=== PATIENT | male | born 1935 | race Caucasian/White ===

== ENCOUNTER 2017-12-20 09:25 | Outpatient (CLI) | payer MEDICARE, OTHER ==
[2017-12-20 12:53] LABS: BASOPHILS # (AUTO) 0.1 10^3/uL (0.0-0.1); EOSINOPHILS # (AUTO) 0.2 10^3/uL (0.0-0.7); EOSINOPHILS % (AUTO) 3.8 %; LYMPHOCYTES % (AUTO) 34.4 %; MEAN CORPUSCULAR HEMOGLOBIN 32.3 pg (27.0-31.0); MEAN CORPUSCULAR HGB CONC 35.2 g/dL (32.0-36.0); MEAN CORPUSCULAR VOLUME 91.7 fL (80.0-94.0); MEAN PLATELET VOLUME 9.1 fL (7.4-11.4); MONOCYTES # (AUTO) 0.6 10^3/uL (0.0-1.0); MONOCYTES % (AUTO) 9.7 %; NEUTROPHILS % (AUTO) 51.1 %; PLT - PLATELET COUNT 208 10^3/uL (130-450); RED BLOOD COUNT 4.34 10^6/uL (4.70-6.10); RED CELL DISTRIBUTION WIDTH 13.8 % (12.0-15.0); WHITE BLOOD COUNT 5.9 x10^3/uL (4.8-10.8)
[2017-12-20 13:11] LABS: ALBUMIN 3.9 g/dL (3.2-5.5); ALBUMIN/GLOBULIN RATIO 1.2 (1.0-2.2); ALKALINE PHOSPHATASE 52 IU/L (42-121); ALT ALANINE AMINOTRANSFERASE 18 IU/L (10-60); AST ASPARTATE AMINOTRANSFERASE 27 IU/L (10-42); BILIRUBIN,TOTAL 1.3 mg/dL (0.2-1.0); BUN - BLOOD UREA NITROGEN 21 mg/dL (6-20); CARBON DIOXIDE - CO2 28 mmol/L (21-32); CHLORIDE 101 mmol/L (101-111); CHOLESTEROL 139 mg/dL; CREATININE 1.2 mg/dL (0.6-1.2); GFR - MDRD 58 (>89); GLUCOSE 97 mg/dL (70-100); HDL CHOLESTEROL 35 mg/dL; LDL CHOLESTEROL,CALCULATED 87 mg/dL; LDL/HDL RATIO 2.5 (<3.6); SODIUM 136 mmol/L (135-145); TOTAL PROTEIN 7.2 g/dL (6.7-8.2); VLDL CHOLESTEROL 17 mg/dL
== END 2017-12-20 09:26 | disposition home or self-care (01) ==
LOC: LAB.WCP 09:25
PROVIDERS: ATTEND Family Medicine
DX: I10 Essential (primary) hypertension (principal); E78.5 Hyperlipidemia, unspecified
CPT/HCPCS: 36415; 80053; 80061; 83721; 84443; 85025

== ENCOUNTER 2018-04-03 05:57 | Outpatient (CLI) | payer MEDICARE, OTHER ==
[2018-04-03] MEDS ORDERED: IOPAMIDOL-300 100 ML VIAL ONE (06:58)
[2018-04-03] MEDS ORDERED: IOPAMIDOL-300 100 ML VIAL IVP ONE (07:37)
--- NOTE | 2018-04-03 11:29 | CT Report ---
Reason: RENAL MASS Procedure Date: 04/03/2018 Accession Number: [id number] / [id number] Procedure: CT - Abdomen W/WO CPT Code: FULL RESULT: EXAM: CT ABDOMEN WITHOUT AND WITH CONTRAST EXAM DATE: 04/03/2018 07:32 AM. HISTORY: RENAL MASS. COMPARISON: ABDOMEN/PELVIS W/ 02/22/2016 12:30 PM. TECHNIQUE: Routine helical CT imaging was performed through the abdomen before and after administration of IV contrast: 100 mL of Isovue-300. Enteric contrast: No. Reconstruction: Coronal and sagittal. In accordance with CT protocol optimization, one or more of the following dose reduction techniques were utilized for this exam: automated exposure control, adjustment of mA and/or KV based on patient size, or use of iterative reconstructive technique. FINDINGS: Lung Bases: Unremarkable. Liver: Liver again demonstrates hypodensities too small to characterize. Gallbladder/Bile Ducts: Unremarkable. Spleen: Granuloma. Pancreas: Stable 5 mm hypodensity in the body of the pancreas most likely represents a side branch IPMN. Adrenal Glands: Normal. Kidneys: The previously noted exophytic 1.5 cm left midpole renal mass demonstrates enhancement features consistent with renal cell carcinoma. Bilateral cysts and hypodensities too small to characterize are also noted. Peritoneal Cavity/Bowel: Normal. No free fluid, free air or adenopathy. No masses or acute inflammatory process. The appendix is well visualized and normal. Vasculature: No aneurysms or other significant abnormality. Bones: No aggressive osseous lesion is identified. Note is made of 5 mm of grade 1 anterolisthesis of L4 on L5. Other: None. IMPRESSION: The left 1.5 cm renal lesion is characterized as suspicious for renal cell carcinoma. 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 RADIA The above findings of left renal tumor were discussed with Yue Magaña by Dr. Filemon Barrios at 11:26 hrs on 04/03/18.
== END 2018-04-03 05:58 | disposition home or self-care (01) ==
LOC: LAB 05:57
PROVIDERS: ATTEND Urology
DX: N28.89 Other specified disorders of kidney and ureter (principal); D13.6 Benign neoplasm of pancreas
CPT/HCPCS: 36415; 74170; 82565; 84520; Q9967

== ENCOUNTER 2018-09-24 07:46 | Outpatient (CLI) | payer MEDICARE, OTHER ==
--- NOTE | 2018-09-24 17:06 | Ultrasound Report ---
Reason: OTHER SPECIFIED DISORDERS OF KIDNEY AND URETER Procedure Date: 09/24/2018 Accession Number: [id number] / [id number] Procedure: US - Retroperitoneal CPT Code: FULL RESULT: EXAM: RENAL ULTRASOUND EXAM DATE: 09/24/2018 08:39 AM. CLINICAL HISTORY: Left renal mass, bilateral renal cysts, bladder cancer, for follow-up. COMPARISON: CT abdomen 04/03/2018, ultrasound retroperitoneal 02/27/[address] scan abdomen and pelvis 02/22/2016. TECHNIQUE: Real-time scanning was performed with static images obtained. FINDINGS: Right Kidney: 10.8 x 4.9 x 5 cm. 0.6 x 0.4 x 0.4 cm nonobstructing lower pole calculus. 0.8 x 0.7 x 0.8 cm upper pole simple cyst. Otherwise negative right kidney Left Kidney: 11 x 4.5 x 4.8 cm cm. Mid to lower pole 4 x 3.5 x 4 cm cyst again noted with adjacent solid mass precise measurements difficult to determine because the mass blends with the kidney along its deep margin. Approximate measurements are 1.4 x 1.4 x 3.9 cm . Upper pole cyst 1.3 x 1.1 x 1.2 cm. Bladder: Bilateral jets seen. The prevoid bladder volume was 319 cc. The postvoid bladder volume was 0 cc. Other: None. IMPRESSION: Solid-appearing left renal mass again appreciated adjacent to a large exophytic simple cyst. Precise mass measurements are difficult because the mass blends with the kidney along the deep margin. The exophytic component measures approximately 1.4 cm in diameter. RADIA
== END 2018-09-24 07:47 | disposition home or self-care (01) ==
LOC: DI 07:46
PROVIDERS: ATTEND Urology
DX: N28.89 Other specified disorders of kidney and ureter (principal); N28.1 Cyst of kidney, acquired
CPT/HCPCS: 76770

== ENCOUNTER 2019-02-16 08:00 | Outpatient (CLI) | payer MEDICARE, OTHER ==
[2019-02-16 13:29] LABS: ALBUMIN/GLOBULIN RATIO 1.3 (1.0-2.2); ALKALINE PHOSPHATASE 53 IU/L (42-121); ALT ALANINE AMINOTRANSFERASE 21 IU/L (10-60); AST ASPARTATE AMINOTRANSFERASE 23 IU/L (10-42); BILIRUBIN,TOTAL 1.1 mg/dL (0.2-1.0); BUN - BLOOD UREA NITROGEN 15 mg/dL (6-20); CARBON DIOXIDE - CO2 29 mmol/L (21-32); CHLORIDE 100 mmol/L (101-111); CHOL/HDL RATIO 3.1 (<5.0); CHOLESTEROL 129 mg/dL; CREATININE 1.1 mg/dL (0.6-1.2); GFR - MDRD 64 (>89); GLUCOSE 94 mg/dL (70-100); HDL CHOLESTEROL 41 mg/dL; LDL CHOLESTEROL,CALCULATED 70 mg/dL; LDL/HDL RATIO 1.7 (<3.6); SODIUM 138 mmol/L (135-145); TOTAL PROTEIN 7.2 g/dL (6.7-8.2); VLDL CHOLESTEROL 18 mg/dL
[2019-02-16 13:48] LABS: BASOPHILS # (AUTO) 0.1 10^3/uL (0.0-0.1); BASOPHILS % (AUTO) 0.8 %; EOSINOPHILS # (AUTO) 0.3 10^3/uL (0.0-0.7); EOSINOPHILS % (AUTO) 3.4 %; HGB - HEMOGLOBIN 14.3 g/dL (14.0-18.0); LYMPHOCYTES # (AUTO) 2.5 10^3/uL (1.5-3.5); LYMPHOCYTES % (AUTO) 33.1 %; MEAN CORPUSCULAR HEMOGLOBIN 32.1 pg (27.0-31.0); MEAN CORPUSCULAR HGB CONC 34.5 g/dL (32.0-36.0); MEAN CORPUSCULAR VOLUME 93.3 fL (80.0-94.0); MEAN PLATELET VOLUME 10.9 fL (7.4-11.4); MONOCYTES # (AUTO) 0.6 10^3/uL (0.0-1.0); MONOCYTES % (AUTO) 8.3 %; NEUTROPHILS # (AUTO) 4.1 10^3/uL (1.5-6.6); NEUTROPHILS % (AUTO) 54.1 %; PLT - PLATELET COUNT 215 10^3/uL (130-450); RED BLOOD COUNT 4.45 10^6/uL (4.70-6.10); RED CELL DISTRIBUTION WIDTH 13.2 % (12.0-15.0); WHITE BLOOD COUNT 7.6 x10^3/uL (4.8-10.8)
== END 2019-02-16 23:59 | disposition home or self-care (01) ==
LOC: LAB.WCP 08:00
PROVIDERS: ATTEND Family Medicine
DX: I10 Essential (primary) hypertension (principal); E78.5 Hyperlipidemia, unspecified
CPT/HCPCS: 36415; 80053; 80061; 83721; 84443; 85025

== ENCOUNTER 2019-11-02 11:39 | Outpatient (CLI) | payer MEDICARE, OTHER ==
--- NOTE | 2019-11-02 16:57 | Ultrasound Report ---
Reason: RENAL MASS Procedure Date: 11/02/2019 Accession Number: [id number] / [id number] Procedure: US - Retroperitoneal CPT Code: Final Report FULL RESULT: PROCEDURE: Retroperitoneal INDICATIONS: RENAL MASS TECHNIQUE: Real-time scanning was performed of the retroperitoneal organs, with image documentation. COMPARISON: Prior retroperitoneal ultrasound 09/24/[address] abdomen 04/03/2018. These studies have identified a solid left renal cortical mass lesion adjacent to a large simple cyst. FINDINGS: Sonographic evaluation again performed, targeted specifically towards determining whether there is interval enlargement of a solid suspected renal cell carcinoma at the left kidney. Kidneys: Kidneys are normal in size. Right kidney measures 11.1 cm long; left kidney measures 11.0 cm long. Right renal cortical thickness is 1.2 cm; left renal cortical thickness is 1.1 cm. The right kidney contains a 9 x 10 x 12 mm cyst, and a set of 2 calculi at the mid kidney on the right measuring 5 x 7 x 10 mm and at the lower third collecting system measuring 5 x 6 x 7 mm with mild pelvic prominence in the normal variant range. The left kidney again shows a dominant exophytic fluid-filled cyst measuring up to 4.4 x 3.9 x 4.6 cm and the solid mass immediately adjacent measures up to 4.0 by 1.3 x 1.7 cm and previously having measured 3.9 x 1.4 x 1.4 cm. There is little if any change. A second septated cyst measures 2.7 x 1.6 x 1.4 cm at the lower cortex of the left kidney. Pancreas: Visualized portions of the pancreas are sonographically normal. Aorta: Visualized aorta is normal in caliber at 3 cm or less. Iliac arteries: Proximal common iliac arteries are normal in caliber at 2.5 cm or less. IVC: Intrahepatic inferior vena cava is patent. Miscellaneous: No free abdominal fluid. IMPRESSION: The solid mass lesion exophytic from the cortex of the left kidney immediately adjacent to a dominant left lateral renal cortical cyst measures only very slightly larger than on the comparison study from 09/24/2018. 2 nonobstructive calculi are seen at the collecting system of the right kidney. Continued yearly sonographic follow-up of the solid mass is recommended unless directed otherwise by urology specialist staff. Reviewed by: Satinder Luong MD on 11/02/2019 4:56 PM PDT Approved by: Satinder Luong MD on 11/02/2019 4:56 PM PDT Station ID: [id number]
== END 2019-11-02 11:40 | disposition home or self-care (01) ==
LOC: DI 11:39
PROVIDERS: ATTEND Urology
DX: N28.89 Other specified disorders of kidney and ureter (principal); N28.1 Cyst of kidney, acquired; N20.0 Calculus of kidney
CPT/HCPCS: 76770

== ENCOUNTER 2020-04-07 08:03 | Outpatient (CLI) | payer MEDICARE, OTHER ==
[2020-04-07 08:36] LABS: CREATININE 1.2 mg/dL (0.6-1.2)
[2020-04-07] MEDS ORDERED: IOVERSOL 320 100 ML VIAL IVP ONE ×2 (09:05→17:12)
--- NOTE | 2020-04-07 09:58 | CT Report ---
PROCEDURE: ABDOMEN W/WO INDICATIONS: RENAL MASS CONTRAST: IV CONTRAST: Optiray 320 ml: 140 PO CONTRAST: *NO PO CONTRAST TECHNIQUE: Images were obtained prior to contrast and after contrast in the arterial and venous phase . For radiation dose reduction, the following was used: automated exposure control, adjustment of m A and/or kV according to patient size. COMPARISON: None. FINDINGS: Image quality: Excellent. ABDOMEN: Lung bases: Lung bases are clear. Heart size is normal. Solid organs: Liver: The liver has no mass or intrahepatic biliary ductal dilatation. Several subcentimeter hepatic hypodensities are too small to further characterize but are likely cysts and are unchanged compared to 04/03/2018. Biliary: The gallbladder has no stones. No wall thickening or pericholecystic fluid. Pancreas: No pancreatic mass or ductal dilatation. No peripancreatic inflammation. Spleen: The spleen has a normal size. Multiple punctate calcifications in the spleen are consistent w ith prior granulomatous disease. Adrenal glands: Normal size. No adrenal nodules. Kidneys: A dominant cyst of the left kidney measuring 4.0 x 4.5 x 4.7 cm is slightly larger compared to the prior CT on 04/03/2018 when it measured 3.7 x 3.4 x 4.0 cm. Adjacent to this cyst a solid perip herally enhancing mass measuring 1.4 x 1.7 x 1.3 cm is unchanged, having previously measured 1.3 x 1. 6 x 1.3 cm. A 1.4 cm cyst in the midpole posteriorly is simple and appears unchanged. Bowel: The distal esophagus, stomach, small bowel are normal. The visualized large bowel has a normal appearance with a few scattered diverticula. Free air/free fluid: No free air or free fluid. Abdominal wall: No abdominal wall mass or hernia. Retroperitoneum: No retroperitoneal adenopathy or mass. Lymph nodes: No abdominal or retroperitoneal adenopathy. Bones: The lumbar spine has multilevel degenerative changes and Schmorl's nodes at multiple levels. T he L4-5 disc space is narrowed with endplate degenerative changes. The L1 and L3 vertebral bodies hav e sclerotic lesions anteriorly which are unchanged compared to a remote CT on 04/03/2018. IMPRESSION: 1. Solid peripherally enhancing mass in the left kidney is stable compared to the prior CT on 04/03/20 18. 2. A dominant cyst in the left kidney is slightly larger now measuring 4.0 x 4.5 x 4.7 cm. 3. A second cyst in the left kidney appears simple and is unchanged. 4. Unchanged sclerotic foci in the lumbar spine at L1 and L3. Reviewed by: Keith Hoffman on 04/07/2020 9:57 AM PST Approved by: Keith Hoffman on 04/07/2020 9:57 AM [facility] Station ID: [id number]
== END 2020-04-07 08:04 | disposition home or self-care (01) ==
LOC: LAB 08:03
PROVIDERS: ATTEND Urology
DX: N28.89 Other specified disorders of kidney and ureter (principal); N28.1 Cyst of kidney, acquired
CPT/HCPCS: 36415; 74170; 82565; 84520; Q9967

== ENCOUNTER 2020-08-02 07:20 | Outpatient (CLI) | payer MEDICARE, OTHER ==
[2020-08-02 12:07] LABS: BASOPHILS # (AUTO) 0.1 10^3/uL (0.0-0.1); BASOPHILS % (AUTO) 0.9 %; EOSINOPHILS # (AUTO) 0.2 10^3/uL (0.0-0.7); EOSINOPHILS % (AUTO) 2.8 %; HCT - HEMATOCRIT 41.2 % (42.0-52.0); LYMPHOCYTES # (AUTO) 2.1 10^3/uL (1.5-3.5); LYMPHOCYTES % (AUTO) 36.8 %; MEAN CORPUSCULAR HEMOGLOBIN 31.5 pg (27.0-31.0); MEAN CORPUSCULAR VOLUME 92.8 fL (80.0-94.0); MEAN PLATELET VOLUME 10.7 fL (7.4-11.4); MONOCYTES # (AUTO) 0.5 10^3/uL (0.0-1.0); NEUTROPHILS # (AUTO) 2.9 10^3/uL (1.5-6.6); NEUTROPHILS % (AUTO) 50.3 %; PLT - PLATELET COUNT 235 10^3/uL (130-450); RED BLOOD COUNT 4.44 10^6/uL (4.70-6.10); RED CELL DISTRIBUTION WIDTH 13.7 % (12.0-15.0); WHITE BLOOD COUNT 5.8 x10^3/uL (4.8-10.8)
[2020-08-02 12:25] LABS: ALBUMIN 4.2 g/dL (3.2-5.5); ALBUMIN/GLOBULIN RATIO 1.4 (1.0-2.2); ALKALINE PHOSPHATASE 53 IU/L (42-121); ALT ALANINE AMINOTRANSFERASE 16 IU/L (10-60); AST ASPARTATE AMINOTRANSFERASE 21 IU/L (10-42); BILIRUBIN,TOTAL 1.3 mg/dL (0.2-1.0); BUN - BLOOD UREA NITROGEN 14 mg/dL (6-20); CALCIUM 9.1 mg/dL (8.5-10.3); CARBON DIOXIDE - CO2 25 mmol/L (21-32); CHLORIDE 102 mmol/L (101-111); CHOLESTEROL 136 mg/dL; CREATININE 1.1 mg/dL (0.6-1.2); GFR - MDRD 64 (>89); GLUCOSE 96 mg/dL (70-100); HDL CHOLESTEROL 46 mg/dL; LDL CHOLESTEROL,CALCULATED 72 mg/dL; LDL/HDL RATIO 1.6 (<3.6); POTASSIUM 3.8 mmol/L (3.5-5.0); SODIUM 136 mmol/L (135-145); TOTAL PROTEIN 7.2 g/dL (6.7-8.2); TRIGLYCERIDES 91 mg/dL; VLDL CHOLESTEROL 18 mg/dL
[2020-08-02 12:33] LABS: THYROID STIMULATING HORMONE 2.14 uIU/mL (0.34-5.60)
[2020-08-02 12:37] LABS: BILIRUBIN,URINE NEGATIVE (NEGATIVE); GLUCOSE, URINE (UA) NEGATIVE (NEGATIVE); KETONES,URINE (UA) NEGATIVE (NEGATIVE); LEUKOCYTE ESTERASE, URINE NEGATIVE (NEGATIVE); NITRITE,URINE NEGATIVE (NEGATIVE); OCCULT BLOOD,URINE NEGATIVE (NEGATIVE); PROTEIN,URINE NEGATIVE (NEGATIVE); UROBILINOGEN,URINE 0.2 (NORMAL) E.U./dL (NORMAL)
[2020-08-02 12:48] LABS: CLARITY,URINE CLEAR (CLEAR); RBC,URINE 0-5 /HPF (0-5); SQUAMOUS EPITHELIAL CELL,UR RARE Squamous (<= Few); WBC,URINE 0-3 /HPF (0-3)
[2020-08-02 12:49] LABS: BACTERIA,URINE None Seen /HPF (None Seen); CRYSTALS,URINE 0-2 Calcium Oxalate /LPF
== END 2020-08-02 23:59 | disposition home or self-care (01) ==
LOC: LAB.WCP 07:20
PROVIDERS: ATTEND Family Medicine
DX: C44.310 Basal cell carcinoma of skin of unspecified parts of face (principal); E78.5 Hyperlipidemia, unspecified; C67.9 Malignant neoplasm of bladder, unspecified; I10 Essential (primary) hypertension
CPT/HCPCS: 36415; 80053; 80061; 81001; 83721; 84443; 85025; 87086

== ENCOUNTER 2020-08-24 12:25 | Outpatient (CLI) | payer MEDICARE, OTHER ==
--- NOTE | 2020-08-24 14:45 | XRAY Report ---
PROCEDURE: Toe(s) LT INDICATIONS: CONTUSION OF L GREAT TOE WITH DAMAGE TO NAIL TECHNIQUE: 2 views of the first toe(s) acquired. COMPARISON: None FINDINGS: Bones: No fractures or dislocations. No suspicious bony lesions. Severe joint space narrowing and periarticular osteophyte formation at the first and second metatarsophalangeal joints. Mild joint spa ce narrowing and periarticular osteophyte formation at the interphalangeal joints of the digits. Soft tissues: Soft tissue calcifications at the medial aspect of the first metatarsal head. IMPRESSION: 1. Soft tissue calcifications adjacent to the first metatarsal head, which could indicate underlying gout. 2. Osteoarthritis. 3. No acute fracture. No osseous lesion. If symptoms and/or clinical suspicion for pathology continue , further assessment with repeat plain films, or advanced imaging (e.g., CT, MRI, or bone scan) is re commended for further assessment. Reviewed by: Radha Veronica MD on 08/24/2020 2:44 PM PDT Approved by: Radha Veronica MD on 08/24/2020 2:44 PM PDT Station ID: [id number]
== END 2020-08-24 23:59 | disposition home or self-care (01) ==
LOC: DI.N 12:25
PROVIDERS: ATTEND Nurse Practitioner
DX: S90.212A Contusion of left great toe with damage to nail, initial encounter (principal); M19.072 Primary osteoarthritis, left ankle and foot

== ENCOUNTER 2021-05-24 06:50 | Outpatient (CLI) | payer MEDICARE, OTHER ==
--- NOTE | 2021-05-24 08:18 | Ultrasound Report ---
PROCEDURE: Retroperitoneal INDICATIONS: LEFT RENAL MASS TECHNIQUE: Real-time scanning was performed of the retroperitoneal organs, with image documentation. COMPARISON: MRI dated 04/07/2020 FINDINGS: Kidneys: Kidneys are normal in size. Right kidney measures 10.9 cm long; left kidney measures 10.8 cm long. Right renal cortical thickness is 1.2 cm; left renal cortical thickness is 0.9 cm. The 16 mm diameter solid appearing mass within the superior pole left kidney is unchanged. Left interpolar a nd inferior pole renal cysts are unchanged, largest of which is in the left interpolar kidney measuri ng 51 mm.. No hydronephrosis, or nephrolithiasis. There is mild right pelviectasis. Prevoid urinary bladder volume is 430 cc. Postvoid residual is 0 cc. Prostate is enlarged measuring 4 6 mm. Bilateral ureteral jets are present. IMPRESSION: 1. No change in left renal mass. 2. Mild right pelviectasis. 3. Prostate enlargement. Recommend correlation with PSA values. Reviewed by: Radha Veronica MD on 05/24/2021 8:16 AM PST Approved by: Radha Veronica MD on 05/24/2021 8:16 AM PST Station ID: [id number]
== END 2021-05-24 06:51 | disposition home or self-care (01) ==
LOC: DI 06:50
PROVIDERS: ATTEND Urology
DX: N28.89 Other specified disorders of kidney and ureter (principal); N40.0 Benign prostatic hyperplasia without lower urinary tract symptoms

== ENCOUNTER 2022-06-18 06:53 | Outpatient (CLI) | payer MEDICARE, OTHER ==
--- NOTE | 2022-06-18 15:39 | Ultrasound Report ---
PROCEDURE: Retroperitoneal INDICATIONS: RIGHT LIVER MASS TECHNIQUE: Real-time scanning was performed of the retroperitoneal organs, with image documentation. COMPARISON: Retroperitoneal ultrasound 05/24/2021 FINDINGS: Kidneys: Kidneys are normal in size. Right kidney measures 10.9 cm long; left kidney measures 10.8 cm long. Right renal cortical thickness is 1.2 cm; left renal cortical thickness is 0.9 cm. Simple c yst is noted in the superior right renal pole measuring 13 x 12 x 12 mm. 3 simple cysts are noted on the left the largest measuring 54 x 42 x 53 mm. There is a focus of heterogeneous echogenicity appear ing solid in the superior left renal pole measuring 22 x 18 x 16 mm. It previously measured 16 x 16 x 15 mm. There is mild prominence of the right renal pelvis. Bladder: Pre-void bladder volume is 357 mL. Post-void residual is 0 mL. Pre-void images demonstrat e no intraluminal masses or stones. On pre-void images, bilateral ureteral jets are noted with color Doppler interrogation. (Of note, ureteral jets may not be detectable in up to 25% of cases due to i nsufficient differences in specific gravity between ureteral and bladder urine). Miscellaneous: No free abdominal fluid. IMPRESSION: Enlarging solid-appearing left renal mass is concerning for renal cell malignancy. Reviewed by: Radha Woodson MD on 06/18/2022 3:38 PM PST Approved by: Radha Woodson MD on 06/18/2022 3:38 PM PST Station ID: [id number]
== END 2022-06-18 06:54 | disposition home or self-care (01) ==
LOC: DI 06:53
PROVIDERS: ATTEND Physician Assistant Medical
DX: N28.89 Other specified disorders of kidney and ureter (principal)

== ENCOUNTER 2022-06-26 06:46 | Outpatient (CLI) | payer MEDICARE, OTHER ==
[2022-06-26] MEDS ORDERED: iohexoL-300 100 ML VIAL ONE ×2 (07:08→08:25)
[2022-06-26] MEDS ORDERED: iohexoL-300 100 ML VIAL IVP ONE (10:12)
--- NOTE | 2022-06-26 10:19 | CT Report ---
PROCEDURE: ABDOMEN W/WO INDICATIONS: LEFT RENAL MASS CONTRAST: 140ml Omnipaque 300 TECHNIQUE: 4 phase scanning was performed. After the administration of intravenous contrast, 5 mm thick section s acquired from the diaphragm to the symphysis. 5 mm coronal and sagittal reformats were acquired. For radiation dose reduction, the following was used: automated exposure control, adjustment of mA a nd/or kV according to patient size. COMPARISON: Renal ultrasound 06/18/2022, CT renal protocol 11/02/2019, 04/03/2018. FINDINGS: Image quality: Excellent. Lung bases: Lung bases are clear. Left lung base cannot granuloma. Heart size is normal. Small hia haylee hernia. Small hepatic cyst. Gallbladder is not distended. Biliary system is non dilated. Pancreas is normal in morphology. Cyst in the body the pancreas measuring 0.4 cm, (), unchanged. No pancreatic du ctal dilatation. Spleen is normal in size and enhancement. Calcified splenic granulomas. No adrenal nodules. Kidneys are normal limits in size. Right kidney inferior pole punctate nonobstructing kidney stone. N o hydronephrosis. Small left peripelvic cysts. Bilateral low-density renal cysts. Largest at the infe rior pole the left kidney measuring 5.5 cm. Mid left kidney exophytic mass measuring 1.8 x 1.4 cm, (1 ), previously remeasured 1.6 x 1.4 cm, and more remotely 1.5 x 1.1 cm on 04/03/2018. Nodes and vessels: No retroperitoneal adenopathy. Mesenteric lymph node in the left paramedian abdome n measuring 1 cm short axis diameter, (), previously 1.7 cm, and more remotely 0.9 cm 2018; sligh tly inferior 1.1 cm, (47), previously 1.4 cm in 2019. Aorta and inferior vena cava are normal in si ze. Mild calcified plaque. Renal artery and vein are patent. Bowel and peritoneum: Unenhanced bowel loops are normal in caliber. No free fluid or air. Bones: Sclerotic foci at L1 and L3 are unchanged since 2018. Small Schmorl's nodes are unchanged. Het erogeneity to the right iliac wing is unchanged. No vertebral body compression fractures. Miscellaneous: No ventral hernias. IMPRESSION: 1. Mid right kidney exophytic mass measuring 1.8 cm is slightly increased in size. This is suspicious for slow growing renal cell carcinoma. 2. Mildly enlarged left mesenteric lymph nodes are decreased in size compared to 2020. 3. Small cyst in the body the pancreas measuring 0.4 cm is unchanged. Possible IPMN. Reviewed by: Alex Martinez MD on 06/26/2022 10:18 AM PST Approved by: Alex Martinez MD on 06/26/2022 10:18 AM PST Station ID: [id number]
== END 2022-06-26 06:47 | disposition home or self-care (01) ==
LOC: LAB 06:46
PROVIDERS: ATTEND Physician Assistant Medical
DX: N28.89 Other specified disorders of kidney and ureter (principal); R59.0 Localized enlarged lymph nodes; K86.2 Cyst of pancreas

== ENCOUNTER 2022-06-26 06:54 | Outpatient (CLI) | payer MEDICARE, OTHER ==
[2022-06-26 07:27] LABS: BASOPHILS # (AUTO) 0.1 10^3/uL (0.0-0.1); BASOPHILS % (AUTO) 1.2 %; EOSINOPHILS # (AUTO) 0.2 10^3/uL (0.0-0.7); EOSINOPHILS % (AUTO) 3.5 %; LYMPHOCYTES # (AUTO) 2.2 10^3/uL (1.5-3.5); LYMPHOCYTES % (AUTO) 37.3 %; MEAN CORPUSCULAR HEMOGLOBIN 31.7 pg (27.0-31.0); MEAN CORPUSCULAR HGB CONC 34.1 g/dL (32.0-36.0); MEAN CORPUSCULAR VOLUME 92.8 fL (80.0-94.0); MEAN PLATELET VOLUME 10.4 fL (7.4-11.4); MONOCYTES # (AUTO) 0.5 10^3/uL (0.0-1.0); MONOCYTES % (AUTO) 8.8 %; PLT - PLATELET COUNT 200 10^3/uL (130-450); RED BLOOD COUNT 4.42 10^6/uL (4.70-6.10); RED CELL DISTRIBUTION WIDTH 12.7 % (12.0-15.0)
[2022-06-26 07:40] LABS: ALBUMIN 4.4 g/dL (3.2-5.5); ALBUMIN/GLOBULIN RATIO 1.5 (1.0-2.2); ALKALINE PHOSPHATASE 51 IU/L (42-121); ALT ALANINE AMINOTRANSFERASE 18 IU/L (10-60); AST ASPARTATE AMINOTRANSFERASE 21 IU/L (10-42); BILIRUBIN,TOTAL 1.1 mg/dL (0.2-1.0); BUN - BLOOD UREA NITROGEN 18 mg/dL (6-20); CALCIUM 9.5 mg/dL (8.5-10.3); CARBON DIOXIDE - CO2 26 mmol/L (21-32); CHLORIDE 100 mmol/L (101-111); CHOL/HDL RATIO 3.6 (<5.0); CHOLESTEROL 131 mg/dL; CREATININE 1.3 mg/dL (0.6-1.2); GFR - MDRD 52 (>89); GLUCOSE 100 mg/dL (70-100); HDL CHOLESTEROL 36 mg/dL; LDL CHOLESTEROL,CALCULATED 78 mg/dL; LDL/HDL RATIO 2.2 (<3.6); POTASSIUM 3.9 mmol/L (3.5-5.0); SODIUM 137 mmol/L (135-145); TOTAL PROTEIN 7.4 g/dL (6.7-8.2); TRIGLYCERIDES 84 mg/dL; VLDL CHOLESTEROL 17 mg/dL
[2022-06-26 07:51] LABS: THYROID STIMULATING HORMONE 3.05 uIU/mL (0.34-5.60)
== END 2022-06-26 06:55 | disposition home or self-care (01) ==
LOC: LAB 06:54
PROVIDERS: ATTEND Internal Medicine
DX: I10 Essential (primary) hypertension (principal); E78.5 Hyperlipidemia, unspecified; Z86.79 Personal history of other diseases of the circulatory system; N28.89 Other specified disorders of kidney and ureter; R59.0 Localized enlarged lymph nodes; K86.2 Cyst of pancreas
CPT/HCPCS: 36415; 74170; 80053; 80061; 84443; 85025; Q9967; 83721

== ENCOUNTER 2023-05-02 13:35 | Outpatient (CLI) | payer MEDICARE, OTHER ==
[2023-05-02 14:03] LABS: CREATININE 1.1 mg/dL (0.6-1.3)
[2023-05-02] MEDS ORDERED: iohexoL-300 100 ML VIAL IVP ONE (16:40)
--- NOTE | 2023-05-02 19:08 | CT Report ---
PROCEDURE: CT neck with contrast INDICATIONS: NECK AND CHEST MASS TECHNIQUE: Helical axial CT of the neck was obtained after an intravenous contrast injection, and re formatted in multiple planes. Radiation dose reduction was achieved using automated exposure control or adjustment of mA and/or kV according to patient size. COMPARISON: None. FINDINGS: Skull Base: The visualized intracranial contents, skull, and orbits are unremarkable. Visualized par anasal sinuses are clear. Pharynx and Larynx: The nasopharyngeal airway is patent and midline. Parapharyngeal soft tissues in cluding palantine tonsils and base of the tongue are normal. Retropharyngeal space unremarkable. No rmal appearance of the false and true vocal cords. Muscles and Fascial Planes: Fascial planes are well maintained. No abscess or mass lesion. Lymph Nodes: Bulky left level 4, level 5B and supraclavicular adenopathy is conglomerate consistent with mook metastatic disease. Vasculature: Unremarkable. Submandibular and Parotid Glands: Normal in size and attenuation. Thyroid: Unremarkable. No enlarged or calcified nodules. Bones: Degenerative disc disease and arthropathy in the cervical spine results in reversal of normal cervical lordosis. No intrinsic lytic or blastic lesion. Lung Apices: The visualized lung apices are clear. 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
--- NOTE | 2023-05-03 00:02 | CT Report ---
PROCEDURE: CHEST W INDICATIONS: NECK AND CHEST MASS CONTRAST: 100mL Omni 300 TECHNIQUE: After the administration of intravenous contrast, 1 mm axial images were acquired from the pulmonary apices through the posterior costophrenic angles. Axial 5 mm soft tissue kernel reconstructions were performed as well as 8 mm axial MIP and coronal and sagittal 5 mm reformations. For radiation dose reduction, the following was used: automated exposure control, adjustment of mA and/or kV according to patient size. COMPARISON: CT abdomen 06/26/2022. FINDINGS: Image quality: Excellent. Lungs and pleura: No consolidation. No pleural effusions. No pneumothorax. No suspicious pulmonary n odules which require follow up. Mediastinum: Heart size is normal. Severe coronary artery calcifications. Small pericardial effusion. No large vessel abnormality. Large conglomerated lymph nodes are seen in the azygoesophageal recess measuring up to 2.7 x 4.6 cm in axial dimensions (95/2), by 8.5 cm craniocaudal. These lymph nodes ar e new when compared to the CT from 06/26/2022. A mildly prominent lymph node is seen medial to the upp er descending thoracic aorta measuring 0.9 cm in short axis diameter (46/2). Multiple additional smal ler mediastinal lymph nodes are noted that are not significantly enlarged by size criteria. Chest wall and lower neck: Thyroid is unremarkable. Bulky conglomerated left level 4 and level 5B sup raclavicular lymph nodes are seen that are partially obscured by streak artifact at the same level. N o axillary adenopathy by size. Bones: No aggressive osseous abnormality. Stable sclerotic foci at L1 and L3. Upper Abdomen: Calcifications are seen in the spleen. Stable hepatic cysts. Suspected retroaortic lym ph nodes in the upper abdomen at the margins of the [id number] of this exam. Prominent small bowel mesentery lymph nodes are noted, the largest of which measures up to 1.4 cm in short axis diameter ( 121/2). Previously seen solid left renal mass is not included in the [id number] of this exam. IMPRESSION: Large mook masses are seen in the left supraclavicular region and in the lower mediastinum at the az ygoesophageal recess. Suspected additional enlarged lymph nodes in the upper retroperitoneum and smal l bowel mesentery. Overall, findings are suspicious for a possible systemic process such as lymphoma versus mook metastatic disease or other process. Consider tissue sampling for further evaluation if indicated clinically. Reviewed by: Andreas Kaplan MD on 05/03/2023 12:01 AM PST Approved by: Andreas Kaplan MD on 05/03/2023 12:01 AM PST Station ID: [id number]
== END 2023-05-02 13:36 | disposition home or self-care (01) ==
LOC: LAB 13:35
PROVIDERS: ATTEND Physician Assistant
DX: R59.0 Localized enlarged lymph nodes (principal)
CPT/HCPCS: 36415; 70491; 71260; 82565; Q9967

== ENCOUNTER 2023-10-10 07:20 | Outpatient (CLI) | payer MEDICARE, OTHER ==
[2023-10-10 12:09] LABS: BASOPHILS % (AUTO) 1.2 %; EOSINOPHILS % (AUTO) 1.6 %; HCT - HEMATOCRIT 35.3 % (42.0-52.0); HGB - HEMOGLOBIN 11.2 g/dL (14.0-18.0); LYMPHOCYTES % (AUTO) 9.3 %; MEAN CORPUSCULAR HGB CONC 31.7 g/dL (32.0-36.0); MEAN CORPUSCULAR VOLUME 100.9 fL (80.0-94.0); MEAN PLATELET VOLUME 10.7 fL (7.4-11.4); MONOCYTES % (AUTO) 10.6 %; NEUTROPHILS % (AUTO) 70.7 %; PLT - PLATELET COUNT 190 10^3/uL (130-450); RED CELL DISTRIBUTION WIDTH 17.7 % (12.0-15.0); WHITE BLOOD COUNT 12.9 x10^3/uL (4.8-10.8)
[2023-10-10 12:19] LABS: ABNORMAL LYMPHS % (MANUAL) 0 %
[2023-10-10 12:26] LABS: ALBUMIN 4.1 g/dL (3.2-5.5); ALBUMIN/GLOBULIN RATIO 1.6 (1.0-2.2); ALKALINE PHOSPHATASE 110 IU/L (42-121); ALT ALANINE AMINOTRANSFERASE 11 IU/L (10-60); AST ASPARTATE AMINOTRANSFERASE 18 IU/L (10-42); BILIRUBIN,TOTAL 0.5 mg/dL (0.2-1.0); BUN - BLOOD UREA NITROGEN 11 mg/dL (6-20); CALCIUM 9.4 mg/dL (8.5-10.3); CARBON DIOXIDE - CO2 27 mmol/L (21-32); CHLORIDE 107 mmol/L (101-111); CHOL/HDL RATIO 6.1 (<5.0); CHOLESTEROL 183 mg/dL; GFR - MDRD 71 (>89); GLUCOSE 94 mg/dL (74-104); HDL CHOLESTEROL 30 mg/dL; LDL CHOLESTEROL,CALCULATED 114 mg/dL; LDL/HDL RATIO 3.8 (<3.6); POTASSIUM 3.8 mmol/L (3.5-4.5); SODIUM 140 mmol/L (135-145); TOTAL PROTEIN 6.6 g/dL (6.4-8.9); TRIGLYCERIDES 194 mg/dL (48-352); VLDL CHOLESTEROL 39 mg/dL
[2023-10-10 12:39] LABS: BAND NEUTROPHILS % (MANUAL) 6 %; BASOPHILS # (MANUAL) 0.4 10^3/uL (0-0.1); BASOPHILS % (MANUAL) 3 %; LYMPHOCYTES # (MANUAL) 1.5 10^3/uL (1.5-3.5); LYMPHOCYTES % (MANUAL) 12 %; METAMYELOCYTES % (MANUAL) 1 %; MONOCYTES # (MANUAL) 1.8 10^3/uL (0.0-1.0); MYELOCYTES % (MANUAL) 2 %; NEUTROPHILS # (MANUAL) 8.8 10^3/uL (1.5-6.6); PLATELET ESTIMATE, MANUAL NORMAL (130-450,000) (NORMAL); PLATELET MORPHOLOGY NORMAL APPEARANCE (NORMAL); RBC MORPHOLOGY (MULTIPLE) 2+ ANISOCYTOSIS (NORMAL)
[2023-10-10 12:40] LABS: DIFFERENTIAL COMMENT MANUAL DIFFERENTIAL
== END 2023-10-10 07:21 | disposition home or self-care (01) ==
LOC: LAB.N 07:20
PROVIDERS: ATTEND Internal Medicine
DX: C83.30 Diffuse large B-cell lymphoma, unspecified site (principal); E78.5 Hyperlipidemia, unspecified
CPT/HCPCS: 36415; 80053; 80061; 83615; 83721; 85025

== ENCOUNTER 2024-01-10 13:07 | Outpatient (CLI) | payer MEDICARE, OTHER ==
--- NOTE | 2024-01-13 15:27 | XRAY Report ---
PROCEDURE: Ankle 3+V RT INDICATIONS: ARTHRITIS TECHNIQUE: 2 views of the ankle were acquired. COMPARISON: None. FINDINGS: Bones: No acute fracture. There is subluxation at the tibiotalar joint space with widening at the la teral aspect and degenerative appearance of narrowing medially. There is appearance of what is likely prior chronic fibular fracture. No suspicious bony lesions. Osteophytes at the ankle joint are prese nt. Soft tissues: No tibiotalar joint effusion. Achilles tendon appears normal. IMPRESSION: Arthritic changes at the ankle particularly the tibiotalar joint space. Reviewed by: Radha Woodson MD on 01/13/2024 3:26 PM PDT Approved by: Radha Woodson MD on 01/13/2024 3:26 PM PDT Station ID: [id number]
== END 2024-01-10 13:08 | disposition home or self-care (01) ==
LOC: DI.N 13:07
PROVIDERS: ATTEND Internal Medicine
DX: M12.571 Traumatic arthropathy, right ankle and foot (principal)